=== PATIENT | female | born 1975 | race American Indian/Alaskan Native ===

== ENCOUNTER 2018-09-25 19:25 | Inpatient (IN) | payer BC, MEDICAID ==
[2018-09-25] MEDS ORDERED: NACL 0.9% 1000 ML 1,000 ML IV ONE ×2 (20:14→20:55)
--- NOTE | 2018-09-25 20:50 | Emergency Department Report ---
HPI - General Chief Complaint: Altered Mental Status Time Seen by Provider: 09/25/18 20:28 - HPI HPI: 42-year-old female presents to the emergency department with some abdominal pain and nausea without vomiting that started acutely this ev ening. The patient was able to room and was sitting down when she started complaining of feeling faint or dizzy. The patient has a previous history of strokes in the family was concerned and called for EMS. She was found to have a blood pressure of 70/30. An IV was started and IV fluid resuscitation was given with some improvement. The abdominal pain is mostly right-sided and worse in the upper quadrants. She did not take anything for her symptoms prior to arrival. She has a past medical history of the aforementioned stroke with mild residual speech deficits, hypertension, complex migraines, peptic ulcer disease. She denies having a primary care physician. She denies any tobacco, illicit drug use or alcohol abuse. ED Past Medical Hx - Past Medical History Hx Hypertension: Yes Hx CVA: Yes Hx Congestive Heart Failure: No Hx Diabetes: No Hx Deep Vein Thrombosis: No Hx Renal Disease: No Hx Sickle Cell Disease: No Hx Headaches / Migraines: Yes (complex migraines) Hx Seizures: Yes Hx Asthma: No Hx COPD: No Hx HIV: No Additional medical history: hemorrhoids, peptic ulcer disease - Surgical History Additional Surgical History: hemorroid surgery, myomectomy - Social History Smoking Status: Never Smoker - Medications Home Medications: Home Medications Medication Instructions Recorded Confirmed Last Taken Type Aspirin [Aspirin BABY CHEW TAB] 81 mg PO QDAY #30 tab.chew 04/29/15 01/25/16 01/25/16 Rx Butalb/Acetamin/Caff 50-325-40 1 tab PO Q4H PRN #20 tablet 04/29/15 01/25/16 01/25/16 Rx [Fioricet] Simvastatin [Zocor TAB] 20 mg PO QHS #30 tablet 04/29/15 01/25/16 01/25/16 Rx Topiramate [Topamax] 50 mg PO QHS #30 tablet 04/29/15 01/25/16 01/25/16 Rx amLODIPine [Norvasc] 5 mg PO DAILY #30 tab 04/29/15 01/25/16 01/25/16 Rx Lisinopril 10 cap PO DAILY 11/08/15 01/25/1601/24/16 History ED Review of Systems ROS: Stated complaint: ABDOMINAL PAIN Other details as noted in HPI Comment: All other systems reviewed and negative Constitutional: weakness. denies: chills Eyes: denies: eye pain, vision change ENT: denies: ear pain, throat pain Respiratory: denies: cough, shortness of breath Cardiovascular: denies: chest pain, palpitations Gastrointestinal: abdominal pain, nausea. denies: vomiting Genitourinary: denies: dysuria, discharge Musculoskeletal: denies: back pain, arthralgia Skin: denies: rash, lesions Neurological: denies: numbness, paresthesias Physical Exam - Physical Exam Vital Signs: Vital Signs 09/25/18 09/25/18 19:51 20:00 Temperature 97.4 F L Pulse Rate 76 82 Respiratory 13 17 Rate Blood Pressure 76/31 73/33 O2 Sat by Pulse 98 Oximetry Physical Exam: GENERAL: The patient is well-developed well-nourished. HEENT: Normocephalic. Atraumatic. Patient has moist mucous membranes. EYES: Extraocular motions are intact. Pupils are equal and reactive to light bilaterally. Pale Conjunctiva. NECK: Supple. Trachea is midline. CHEST/LUNGS: Clear to auscultation. There is no respiratory distress noted. HEART/CARDIOVASCULAR: Regular. There is no tachycardia. There is no obvious murmur. ABDOMEN: Abdomen is soft,. There is right-sided abdominal tenderness to palpation. No guarding. Patient has normal bowel sounds. There is no abdominal distention. SKIN: Skin is warm and dry. NEURO: The patient is awake, alert, and oriented. The patient is cooperative. The patient has no focal neurologic deficits. The patient has normal speech. Cranial nerves II through XII grossly intact. MUSCULOSKELETAL: There is no tenderness or deformity. There is no limitation range of motion. There is no evidence of acute injury. ED Course Vital Signs 09/25/18 09/25/18 19:51 20:00 Temperature 97.4 F L Pulse Rate 76 82 Respiratory 13 17 Rate Blood Pressure 76/31 73/33 O2 Sat by Pulse 98 Oximetry - Consultations Consultation #1: I spoke with the FRAUD EXAMINER on-call, Dr. Negron, and discussed with him the CT findings of fibroids that say that the larger fibroid could be hemorrhagic versus necrotic. Dr. Negron says that there is nothing emergent to be done but he is happy to consult if requested by medicine. 09/25/18 23:59 ED Medical Decision Making - Lab Data Result diagrams: 09/25/18 20:33 09/25/18 20:33 - EKG Data -: EKG Interpreted by Me EKG shows normal: sinus rhythm, axis, intervals, QRS complexes, ST-T waves Rate: normal - EKG Data When compared to previous EKG there are: no significant change Interpretation: normal EKG, unchanged when compared t (04/27/15) - Radiology Data Radiology results: report reviewed EXAM: CT ABDOMEN PELVIS WO CON HISTORY: Abd pain, ALL OVER SINCE TODAY. NO HX OF SURGERIES, BUT HX OF GALLSTONES. PT WAS ALLERGIC TO CONTRAST. TECHNIQUE: Helical CT scan through the abdomen and pelvis without contrast. Images are reconstructed in the sagittal and coronal planes. PRIORS: None. FINDINGS: Solid organ and bowel evaluation is limited without intravenous contrast. Bowel evaluation is limited without oral contrast. Images through the lower thorax show a small pericardial effusion. There is a small to moderate amount of abdominal fluid is around the liver and the spleen in the bilateral upper quadrants and in the bilateral pericolic gutters. The uterus is markedly enlarged due to the presence large fundal masses most consistent with fibroids. The uterus measures 22.2 x 8.6 x 14.0 Cm and the fundus extends 5 cm superior to the umbilicus. The largest fibroid is exophytic, arising from the fundus and measures 10.2 x 9.5 x 9.4 cm. It has a heterogeneous attenuation, possibly fluid. The 2nd largest mass measures approximately 8.9 x 8.0 x 6.8 cm and has coarse calcifications. The ovaries are not well demonstrated. The liver, gallbladder, pancreas, spleen and adrenal glands appear normal. The kidneys appear grossly normal. The stomach appears grossly within normal limits. There are no abnormally dilated loops of bowel or acute inflammatory changes. A normal-appearing appendix is identified. The abdominal aorta has a normal diameter. The bones and subcutaneous soft tissues are unremarkable for age. IMPRESSION: 1. There are large uterine fibroids. The larger fibroid extending from the fundus of the uterus may be hemorrhagic or necrotic. If there has been rapid fibroid growth, this may indicate malignant transformation. 2. Small to moderate abdominal ascites 3. Small pericardial effusion Transcribed By: MLG Dictated By: LEANNA MCKEON MD Electronically Authenticated By: LEANNA MCKEON MD Signed Date/Time: 09/25/[address] of the head without contrast does not show any bleed, shift, mass, ischemia or any other acute process. - Medical Decision Making Patient presents to the emergency department feeling dizzy and faint and with abdominal pain that started this evening. Patient was found to have a hemoglobin of 5.6. She does have a history of anemia requiring transfusions including 2 weeks ago. 2 units of packed red blood cells were ordered for transfusion. The patient's labs have been mostly unremarkable. CT scan of the abdomen and pelvis was done that shows an enlarged uterus and multiple fibroids including one that had the appearance of being necrotic versus hemorrhagic. FRAUD EXAMINER was notified there is no emergent intervention necessary but they are happy to see the patient has a consult. Patient did have some hypotension when she first arrived but with IV fluid resuscitation and now the blood transfusion it has improved/stabilized. Patient will be admitted to the hospital for further evaluation and treatment was accepted for admission by the hospitalist, Dr. Vaughn. - Differential Diagnosis menorrhagia, iron deficiency anemia, dysrhythmia, orthostatic hypotension Critical Care Time: No Critical care attestation.: If time is entered above; I have spent that time in minutes in the direct care of this critically ill patient, excluding procedure time. ED Disposition Clinical Impression: Anemia requiring transfusions, Symptomatic anemia Hypotension Qualifiers: Hypotension type: unspecified hypotension type Qualified Code(s): I95.9 - Hypotension, unspecified Abdominal pain Qualifiers: Abdominal location: generalized Qualified Code(s): R10.84 - Generalized abdominal pain Disposition: OP ADMIT IP TO THIS HOSP Is pt being admited?: Yes Condition: Fair Time of Disposition: 00:43
[2018-09-25 20:51] LABS: Basophils % (Auto) 0.3 % (0.0-1.8); Eosinophils % (Auto) 0.1 % (0.0-4.3); Lymphocytes # (Auto) 1.4 K/mm3 (1.2-5.4); Mean Corpuscular HGB Conc 29 % (30-34); Monocytes # (Auto) 0.6 K/mm3 (0.0-0.8); Monocytes % (Auto) 4.2 % (0.0-7.3); Platelet Count 412 K/mm3 (140-440); Red Blood Count 2.86 M/mm3 (3.65-5.03); Red Cell Distribution Width 19.4 % (13.2-15.2)
[2018-09-25 20:59] LABS: Hemoglobin 5.6 gm/dl (10.1-14.3)
[2018-09-25 21:00] LABS: Hematocrit 19.7 % (30.3-42.9); Mean Corpuscular Volume 69 fl (79-97)
[2018-09-25 21:01] LABS: Alanine Aminotransferase 8 units/L (7-56); Albumin 3.4 g/dL (3.9-5); BUN/Creatinine Ratio 12; Blood Urea Nitrogen 11 mg/dL (7-17); Calcium 7.8 mg/dL (8.4-10.2); Hemolysis Index 7
[2018-09-25] MEDS ORDERED: NACL 0.9% 500 ML 500 ML IV ONE (21:03)
[2018-09-25] MEDS ORDERED: ZOFRAN IV ONE (21:04)
[2018-09-25] MEDS ORDERED: ZOFRAN ONE (21:05)
[2018-09-25 21:35] LABS: INR 1.18 (0.87-1.13)
[2018-09-25 21:36] LABS: Partial Thromboplastin Time 24.7 Sec. (24.2-36.6)
--- NOTE | 2018-09-25 22:28 | XRay Report ---
FINAL REPORT EXAM: XR ABDOMEN 2V HISTORY: Abd pain TECHNIQUE: Supine and upright views of the abdomen. PRIORS: None. FINDINGS: The bowel gas pattern appears normal. There is no evidence of ileus or obstruction. There are no susp icious calcifications. The bones and soft tissues are unremarkable. IMPRESSION: No evidence of acute abdominal disease.
--- NOTE | 2018-09-25 22:55 | Cat Scan Report ---
FINAL REPORT EXAM: CT HEAD/BRAIN WO CON HISTORY: Dizziness TECHNIQUE: CT was performed from the foramen magnum through the vertex in the axial plane without th e use of intravenous contrast. PRIORS: None. FINDINGS: The nguyen/white matter attenuation pattern is normal. There is no mass lesion or mass effect. There ar e no abnormal extra-axial fluid collections. There is no evidence of acute intracranial hemorrhage or infarct. The ventricles are of normal size and configuration. The skull and orbits are unremarkable . The visualized paranasal sinuses are clear. IMPRESSION: Normal CT of the head.
--- NOTE | 2018-09-25 23:12 | Cat Scan Report ---
FINAL REPORT EXAM: CT ABDOMEN PELVIS WO CON HISTORY: Abd pain, ALL OVER SINCE TODAY. NO HX OF SURGERIES, BUT HX OF GALLSTONES. PT WAS ALLERGIC T O CONTRAST. TECHNIQUE: Helical CT scan through the abdomen and pelvis without contrast. Images are reconstructed in the sagittal and coronal planes. PRIORS: None. FINDINGS: Solid organ and bowel evaluation is limited without intravenous contrast. Bowel evaluation is limited without oral contrast. Images through the lower thorax show a small pericardial effusion. There is a small to moderate amount of abdominal fluid is around the liver and the spleen in the bila teral upper quadrants and in the bilateral pericolic gutters. The uterus is markedly enlarged due to the presence large fundal masses most consistent with fibroids . The uterus measures 22.2 x 8.6 x 14.0 Cm and the fundus extends 5 cm superior to the umbilicus. Th e largest fibroid is exophytic, arising from the fundus and measures 10.2 x 9.5 x 9.4 cm. It has a h eterogeneous attenuation, possibly fluid. The 2nd largest mass measures approximately 8.9 x 8.0 x 6.8 cm and has coarse calcifications. The ovaries are not well demonstrated. The liver, gallbladder, pancreas, spleen and adrenal glands appear normal. The kidneys appear grossly normal. The stomach appears grossly within normal limits. There are no abnormally dilated loops of bowel or acute inflammatory changes. A normal-appearing appe ndix is identified. The abdominal aorta has a normal diameter. The bones and subcutaneous soft tissues are unremarkable for age. IMPRESSION: 1. There are large uterine fibroids. The larger fibroid extending from the fundus of the uterus may b e hemorrhagic or necrotic. If there has been rapid fibroid growth, this may indicate malignant transf ormation. 2. Small to moderate abdominal ascites 3. Small pericardial effusion
[2018-09-25] MEDS ORDERED: SUBLIMAZE IV ONE (23:20)
[2018-09-26] MEDS ORDERED: SODIUM CHLORIDE FLUSH SYRINGE 10 ML IV PRN (00:37)
[2018-09-26] MEDS ORDERED: ZOFRAN IV PRN (00:37)
[2018-09-26] MEDS ORDERED: TYLENOL PO PRN (00:37)
--- NOTE | 2018-09-26 00:45 | History and Physical Report ---
History of Present Illness Date of examination: 09/26/18 Date of admission: 09/25/18 23:41 History of present illness: 43-year-old woman with a history of hypertension, migraine [facility] with complaints of abdominal pain. Pain is diffuse, sharp, intensity 8/10, no radiation, better with pain medication. Admits to nausea and vomiting, dizziness. Admits to heavy menstrual flow, typically 4 days Review of systems Constitutional: no weight loss, chills, fever Ears, eyes, nose, mouth and throat: no nasal congestion, no nasal discharge, no sinus pressure, no vision change, no red eye. Neck: No neck pain or rigidity. Cardiovascular: no palpitations, chest pain Respiratory: no cough, shortness of breath Gastrointestinal: no hematochezia Genitourinary : no frequency , no hematuria Musculoskeletal: no joint swelling or muscle ache Integumentary: no rash, no pruritis Neurological: no parathesias, no focal weakness Endocrine: no cold or heat intolerance, no polyuria or polydipsia Hematologic/Lymphatic: no easy bruising, no easy bleeding, no gland swelling Allergic/Immunologic: no urticaria, no angioedema. PAST MEDICAL HISTORY:hypertension, migraine PAST SURGICAL HISTORY: Myomectomy SOCIAL HISTORY: Denies alcohol, drugs, tobacco FAMILY HISTORY: Hypertension Medications and Allergies Allergies Allergy/AdvReac Type Severity Reaction Status Date / Time iv dye Allergy Hives Uncoded 11/25/14 13:16 Home Medications Medication Instructions Recorded Confirmed Last Taken Type RX: Butalb/Acetamin/Caff 50-325-40 1 tab PO Q4H PRN #20 tablet 04/29/15 01/25/16 01/25/16 Rx [Fioricet] RX: Topiramate [Topamax] 50 mg PO QHS #30 tablet 04/29/15 01/25/16 01/25/16 Rx Lisinopril 10 cap PO DAILY #30 09/27/18 Unknown Rx RX: Aspirin [Aspirin BABY CHEW TAB] 81 mg PO QDAY #30 tab.chew 09/27/18 Unknown Rx RX: Simvastatin (Nf) [Zocor TAB] 20 mg PO QHS #30 tablet 09/27/18 Unknown Rx RX: amLODIPine [Norvasc] 5 mg PO DAILY #30 tab 09/27/18 Unknown Rx oxyCODONE /ACETAMINOPHEN [Percocet 1 tab PO Q4HR #12 tab 09/27/18 Unknown Rx 5/325] Exam - Physical Exam Narrative exam: General Apperance: The patient lying in bed, breathing comfortable HEENT: Normocephalic, atraumatic. Pupils equally round and reactive to light, EOMI, no sclericterus or JVD or thyromegaly or nodule. , no carotid bruit, mucous membranes moist, no exudate or erythema Heart: S1-S2, regular is rhythm Lungs: Clear to auscultation bilaterally, breathing comfortable Abdomen: Positive bowel sounds, soft, tender in the mid abdomen, nondistended, no organomegaly Extremities: No edema cyanosis clubbing Skin: no rash, nodule, warm and dry Neuro: cranial nerves 2-12 intact, speech is fluent, motor/sensory intact - Constitutional Vitals: Temp Pulse Resp BP Pulse Ox 98.3 F 94 H 20 118/60 100 09/25/18 23:35 09/25/18 23:50 09/25/18 23:50 09/25/18 23:50 09/25/18 23:50 Results - Labs CBC & Chem 7: 09/27/18 04:41 09/27/18 04:41 Labs: Abnormal lab results 09/25/18 09/25/18 09/25/18 Range/Units 20:24 20:33 20:33 WBC (4.5-11.0) K/mm3 RBC (3.65-5.03) M/mm3 Hgb (10.1-14.3) gm/dl Hct (30.3-42.9) % MCV (79-97) fl MCH (28-32) pg MCHC (30-34) % RDW (13.2-15.2) % Lymph % (Auto) (13.4-35.0) % Seg Neutrophils % (40.0-70.0) % Seg Neutrophils # (1.8-7.7) K/mm3 PT (12.2-14.9) Sec. INR (0.87-1.13) Carbon Dioxide 20 L (22-30) mmol/L Glucose 158 H (65-100) mg/dL POC Glucose 148 H (70-105) Lactic Acid 3.30 H* (0.7-2.0) mmol/L Calcium 7.8 L (8.4-10.2) mg/dL Total Protein 5.8 L (6.3-8.2) g/dL Albumin 3.4 L (3.9-5) g/dL Crossmatch 09/25/18 09/25/18 09/25/18 Range/Units 20:33 21:14 21:21 WBC 15.1 H (4.5-11.0) K/mm3 RBC 2.86 L (3.65-5.03) M/mm3 Hgb 5.6 L* (10.1-14.3) gm/dl Hct 19.7 L* (30.3-42.9) % MCV 69 L (79-97) fl MCH 20 L (28-32) pg MCHC 29 L (30-34) % RDW 19.4 H (13.2-15.2) % Lymph % (Auto) 9.0 L (13.4-35.0) % Seg Neutrophils % 86.4 H (40.0-70.0) % Seg Neutrophils # 13.1 H (1.8-7.7) K/mm3 PT 15.4 H (12.2-14.9) Sec. INR 1.18 H (0.87-1.13) Carbon Dioxide (22-30) mmol/L Glucose (65-100) mg/dL POC Glucose (70-105) Lactic Acid (0.7-2.0) mmol/L Calcium (8.4-10.2) mg/dL Total Protein (6.3-8.2) g/dL Albumin (3.9-5) g/dL Crossmatch See Detail 09/25/18 Range/Units 21:21 WBC (4.5-11.0) K/mm3 RBC (3.65-5.03) M/mm3 Hgb (10.1-14.3) gm/dl Hct (30.3-42.9) % MCV (79-97) fl MCH (28-32) pg MCHC (30-34) % RDW (13.2-15.2) % Lymph % (Auto) (13.4-35.0) % Seg Neutrophils % (40.0-70.0) % Seg Neutrophils # (1.8-7.7) K/mm3 PT (12.2-14.9) Sec. INR (0.87-1.13) Carbon Dioxide (22-30) mmol/L Glucose (65-100) mg/dL POC Glucose (70-105) Lactic Acid 3.10 H* (0.7-2.0) mmol/L Calcium (8.4-10.2) mg/dL Total Protein (6.3-8.2) g/dL Albumin (3.9-5) g/dL Crossmatch - Imaging and Cardiology Abdominal x-ray: report reviewed CT scan - abdomen: report reviewed CT scan - pelvis: report reviewed Assessment and Plan Assessment Abdominal pain secondary to fibroids, ? Necrotic versus hemorrhagic SIRS Symptomatic anemia Plan Admit to medicine Transfuse packed red blood cells Consult [employer] CLASSIFIER TENDER IV morphine, to be typical prophylaxis Obtain blood culture, urinalysis, start IV Rocephin
[2018-09-26] MEDS ORDERED: NACL 0.9% 1000 ML 1,000 ML IV SCH (01:00)
[2018-09-26] MEDS: MORPHINE IV PRN ×4 (01:30→21:51)
[2018-09-26] MEDS ORDERED: ZOFRAN ONE (01:37)
[2018-09-26] MEDS ORDERED: MORPHINE ONE ×2 (01:37→01:41)
[2018-09-26] MEDS: ROCEPHIN/NS 1 GM/50 ML 1 GM/50 ML BAG IV SCH ×2 (01:56→11:34)
[2018-09-26 05:58] LABS: Basophils % (Auto) 0.2 % (0.0-1.8); Hematocrit 23.2 % (30.3-42.9); Hemoglobin 7.1 gm/dl (10.1-14.3); Lymphocytes # (Auto) 0.7 K/mm3 (1.2-5.4); Lymphocytes % (Auto) 7.5 % (13.4-35.0); Mean Corpuscular HGB Conc 31 % (30-34); Mean Corpuscular Volume 73 fl (79-97); Monocytes # (Auto) 0.5 K/mm3 (0.0-0.8); Monocytes % (Auto) 4.8 % (0.0-7.3); Platelet Count 329 K/mm3 (140-440); Red Blood Count 3.16 M/mm3 (3.65-5.03); Red Cell Distribution Width 24.9 % (13.2-15.2)
[2018-09-26 06:18] LABS: BUN/Creatinine Ratio 15; Blood Urea Nitrogen 9 mg/dL (7-17); Calcium 7.9 mg/dL (8.4-10.2); Hemolysis Index 9
--- NOTE | 2018-09-26 06:53 | XRay Report ---
FINAL REPORT PROCEDURE: XR CHEST ROUTINE 2V TECHNIQUE: PA and lateral chest radiographs were obtained. CPT 88679 HISTORY: eval for pna COMPARISON: No prior studies are available for comparison. FINDINGS: Heart: Normal. Mediastinum/Vessels: Normal. Lungs/Pleural space: There is suboptimal inspiration. There is atelectasis at the lung bases. There a re no acute infiltrates. There is no pleural effusion or pneumothorax.. Bony thorax: No acute osseous abnormality. Other: IMPRESSION: The heart size is normal.. There is suboptimal inspiration. There is atelectasis at the lung bases. There are no acute infiltrat es. There is no pleural effusion or pneumothorax..
--- NOTE | 2018-09-26 08:33 | Event Note ---
Date: 09/26/18 This is a follow-up from an admission earlier this morning. Patient seen and examined. We will continue the plan as outlined in H&P. Await YARD SWITCH OPERATOR evaluation. We'll transfuse 1 more unit of PRBCs. Total visit time equals 35 minutes; greater than 50 % was spent with correlation of care and counseling.
[2018-09-26] MEDS ORDERED: NACL 0.9% 500 ML 500 ML IV ONE (08:34)
[2018-09-26 10:03] LABS: Bilirubin,Urine NEG (Negative); Blood,Urine NEG (Negative); Color,Urine Yellow (Yellow); Mucus,Urine FEW /HPF; Protein,Urine <15 mg/dL mg/dL (Negative); Urobilinogen,Urine < 2.0 mg/dL (<2.0)
[2018-09-26] MEDS: SODIUM CHLORIDE FLUSH SYRINGE 10 ML IV SCH ×2 (11:34→21:52)
[2018-09-26] MEDS ORDERED: NACL 0.9% 500 ML 500 ML ONE (11:42)
--- NOTE | 2018-09-26 12:19 | Consultation ---
History of Present Illness Consult date: 09/26/18 Requesting physician: MICHAEL COTTON Reason for consult: menorrhagia, other (uterine fibroids) History of present illness: hx as pe ER attending: "42-year-old female presents to the emergency department with some abdominal pain and nausea without vomiting that started acutely this evening. The patient was able to room and was sitting down when she started complaining of feeling faint or dizzy. The patient has a previous history of strokes in the family was concerned and called for EMS. She was found to have a blood pressure of 70/30. An IV was started and IV fluid resuscitation was given with some improvement. The abdominal pain is mostly right-sided and worse in the upper quadrants. She did not take anything for her symptoms prior to arrival. She has a past medical history of the aforementioned stroke with mild residual speech deficits, hypertension, complex migraines, peptic ulcer disease. She denies having a primary care physician. She denies any tobacco, illicit drug use or alcohol abuse." Pt did have CT done that showed large fibroids of which some seem to be degenerating. CHAIN OFFBEARER was consulted for this. Pt is not currently bleeding but states that her periods have been heavy for some time. She did have a myomectomy years ago but due to other jax issues has not been on hormonal threapy for the heavy bleeding. Periods las7 to 10 days with all days being heavy. She currently taking blood thinner daily due to h/o CVA. She has not seen a auto glass technician or had a pap [id number] but states she does have a auto glass technician in [place] she last saw. Pain currently is described as feeling sore across abdomen. Past History Past Medical History: hypertension, blood transfusion, migraines, other (stroke) Past Surgical History: myomectomy CHAIN OFFBEARER History: fibroids, other Family/Genetic History: hypertension, stroke - Obstetrical History : 7 Medications and Allergies Allergies Allergy/AdvReac Type Severity Reaction Status Date / Time iv dye Allergy Hives Uncoded 11/25/14 13:16 Home Medications Medication Instructions Recorded Confirmed Last Taken Type Aspirin [Aspirin BABY CHEW TAB] 81 mg PO QDAY #30 tab.chew 04/29/15 01/25/16 01/25/16 Rx Butalb/Acetamin/Caff 50-325-40 1 tab PO Q4H PRN #20 tablet 08/01/25/16 01/25/16 Rx [Fioricet] Simvastatin [Zocor TAB] 20 mg PO QHS #30 tablet 04/29/15 01/25/16 01/25/16 Rx Topiramate [Topamax] 50 mg PO QHS #30 tablet 04/29/15 01/25/16 01/25/16 Rx amLODIPine [Norvasc] 5 mg PO DAILY #30 tab 04/29/15 01/25/16 01/25/16 Rx Lisinopril 10 cap PO DAILY 11/08/15 01/25/16 01/25/16 History Active Meds: Active Medications Acetaminophen (Tylenol) 650 mg PO Q4H PRN PRN Reason: Pain MILD(1-3)/Fever >100.5/GODOY Ceftriaxone Sodium (Rocephin/Ns 1 Gm/50 Ml) 1 gm in 50 mls @ 100 mls/hr IV Q24HR DAVID; Protocol Last Admin: 09/26/18 11:34 Dose: 100 mls/hr Documented by: Sodium Chloride (Nacl 0.9% 1000 Ml) 1,000 mls @ 100 mls/hr IV DIRECT DAVID Last Admin: 09/26/18 04:43 Dose: 100 mls/hr Documented by: Morphine Sulfate (Morphine) 2 mg IV Q4H PRN PRN Reason: Pain, Moderate (4-6) Last Admin: 09/26/18 04:43 Dose: 2 mg Documented by: Ondansetron HCl (Zofran) 4 mg IV Q8H PRN PRN Reason: Nausea And Vomiting Last Admin: 09/26/18 01:30 Dose: 4 mg Documented by: Sodium Chloride (Sodium Chloride Flush Syringe 10 Ml) 10 ml IV BID ON LICENSE OF [facility] Last Admin: 09/26/18 11:34 Dose: 10 ml Documented by: Sodium Chloride (Sodium Chloride Flush Syringe 10 Ml) 10 ml IV PRN PRN PRN Reason: LINE FLUSH - Vital Signs Vital signs: Vital Signs Pulse Resp BP 76 13 76/31 09/25/18 19:51 09/25/18 19:51 09/25/18 19:51 Temp Pulse Resp BP Pulse Ox 99.1 F 79 18 109/64 100 09/26/18 05:34 09/26/18 05:34 09/26/18 05:34 09/26/18 05:34 09/26/18 05:34 - Physical Exam Breasts: Positive: normal Lungs: Positive: Normal air movement Abdomen: Positive: normal appearance, soft, tenderness (mild diffuse over fundus of uterus), guarding (voluntary agin over uterine fundus). Negative: distention Genitourinary (Female): Positive: other (deferred) Uterus: Positive: enlarged (papated just above the umbilicus) Results Result Diagrams: 09/26/18 05:16 09/26/18 05:16 Abnormal lab results 09/25/18 09/25/18 09/25/18 Range/Units 20:24 20:33 20:33 WBC (4.5-11.0) K/mm3 RBC (3.65-5.03) M/mm3 Hgb (10.1-14.3) gm/dl Hct (30.3-42.9) % MCV (79-97) fl MCH (28-32) pg MCHC (30-34) % RDW (13.2-15.2) % Lymph % (Auto) (13.4-35.0) % Lymph # (1.2-5.4) K/mm3 Seg Neutrophils % (40.0-70.0) % Seg Neutrophils # (1.8-7.7) K/mm3 PT (12.2-14.9) Sec. INR (0.87-1.13) Carbon Dioxide 20 L (22-30) mmol/L Creatinine (0.7-1.2) mg/dL Glucose 158 H (65-100) mg/dL POC Glucose 148 H (70-105) Lactic Acid 3.30 H* (0.7-2.0) mmol/L Calcium 7.8 L (8.4-10.2) mg/dL Total Protein 5.8 L (6.3-8.2) g/dL Albumin 3.4 L (3.9-5) g/dL Crossmatch 09/25/18 09/25/18 09/25/18 Range/Units 20:33 21:14 21:21 WBC 15.1 H (4.5-11.0) K/mm3 RBC 2.86 L (3.65-5.03) M/mm3 Hgb 5.6 L* (10.1-14.3) gm/dl Hct 19.7 L* (30.3-42.9) % MCV 69 L (79-97) fl MCH 20 L (28-32) pg MCHC 29 L (30-34) % RDW 19.4 H (13.2-15.2) % Lymph % (Auto) 9.0 L (13.4-35.0) % Lymph # (1.2-5.4) K/mm3 Seg Neutrophils % 86.4 H (40.0-70.0) % Seg Neutrophils # 13.1 H (1.8-7.7) K/mm3 PT 15.4 H (12.2-14.9) Sec. INR 1.18 H (0.87-1.13) Carbon Dioxide (22-30) mmol/L Creatinine (0.7-1.2) mg/dL Glucose (65-100) mg/dL POC Glucose (70-105) Lactic Acid (0.7-2.0) mmol/L Calcium (8.4-10.2) mg/dL Total Protein (6.3-8.2) g/dL Albumin (3.9-5) g/dL Crossmatch See Detail 09/25/18 09/26/18 09/26/18 Range/Units 21:21 05:16 05:16 WBC (4.5-11.0) K/mm3 RBC 3.16 L (3.65-5.03) M/mm3 Hgb 7.1 L (10.1-14.3) gm/dl Hct 23.2 L (30.3-42.9) % MCV 73 L (79-97) fl MCH 23 L (28-32) pg MCHC (30-34) % RDW 24.9 H (13.2-15.2) % Lymph % (Auto) 7.5 L (13.4-35.0) % Lymph # 0.7 L (1.2-5.4) K/mm3 Seg Neutrophils % 87.5 H (40.0-70.0) % Seg Neutrophils # 8.6 H (1.8-7.7) K/mm3 PT (12.2-14.9) Sec. INR (0.87-1.13) Carbon Dioxide (22-30) mmol/L Creatinine 0.6 L (0.7-1.2) mg/dL Glucose (65-100) mg/dL POC Glucose (70-105) Lactic Acid 3.10 H* (0.7-2.0) mmol/L Calcium 7.9 L (8.4-10.2) mg/dL Total Protein (6.3-8.2) g/dL Albumin (3.9-5) g/dL Crossmatch All other labs normal. Assessment and Plan - Patient Problems (1) Fibroid uterus Current Visit: Yes Status: Acute Plan to address problem: -likely degenerating fibroid causing pain. Would recommend pain management with pt f/u as out pt with auto glass technician for complete work up ie pelvic sonogram, embx if needed, pap. -ultimately will need direct treatment of the fibroids for resolution of sx. All medical intervention that is normal given is contraindicated given h/o stroke. I d/w UFE, myomectomy, and hysterectomy. She of course is undecided at this time but will f/u with auto glass technician concerning this. -clear from auto glass technician standing point. please re-consult as needed. (2) Menorrhagia Current Visit: Yes Status: Acute Plan to address problem: ultimately will need direct treatment of the fibroids for resolution of sx. All medical intervention that is normal given is contraindicated given h/o stroke. I d/w UFE, myomectomy, and hysterectomy. She of course is undecided at this time but will f/u with auto glass technician concerning this. -clear from auto glass technician standing point to be d/c home with work up completed as an out pt. please re-consult as needed. (3) Symptomatic anemia Current Visit: Yes Status: Acute
[2018-09-27 04:59] LABS: Hematocrit 25.8 % (30.3-42.9); Hemoglobin 7.9 gm/dl (10.1-14.3); Mean Corpuscular HGB Conc 31 % (30-34); Mean Corpuscular Volume 76 fl (79-97); Platelet Count 322 K/mm3 (140-440); Red Blood Count 3.42 M/mm3 (3.65-5.03)
[2018-09-27 05:00] LABS: Red Cell Distribution Width 25.1 % (13.2-15.2)
[2018-09-27] MEDS: MORPHINE IV PRN (05:19)
[2018-09-27 05:20] LABS: BUN/Creatinine Ratio 9; Blood Urea Nitrogen 6 mg/dL (7-17); Calcium 8.1 mg/dL (8.4-10.2); Hemolysis Index 13
[2018-09-27 05:55] LABS: Basophils % (Manual) 0 % (0.0-1.8); Monocytes % (Manual) 0 % (0.0-7.3); Total Cells Counted 100
[2018-09-27 05:56] LABS: Anisocytosis 1+; Hypochromasia 1+; Platelet Estimate Consistent w Auto
[2018-09-27 07:21] VITALS: BP 140/89
--- NOTE | 2018-09-27 08:53 | Discharge Summary ---
Providers - Providers Date of Admission: 09/25/18 23:41 Date of discharge: 09/27/18 Attending physician: ISRAEL PEOPLES 09/26/18 00:37 Consult to Physician [CONS] Routine Comment: Consulting Provider: ELLEN ARAMBULA Physician Instructions: Reason For Exam: fibroid, ?necrotic Primary care physician: MANAGER LEGAL Hospitalization Reason for admission: anemia, menorrhagia Condition: Fair Hospital course: 42-year-old female presents to the emergency department with some abdominal pain and nausea without vomiting that started acutely the evening prior to admission. The patient also complained of of feeling faint and dizzy. The patient has a previous history of strokes in the family was concerned and called for EMS. She was found to have a blood pressure of 70/30. An IV was started and IV fluid resuscitation was given with some improvement. The abdominal pain was mostly right-sided and worse in the upper quadrants. She did not take anything for her symptoms prior to arrival. She has a past medical history of the aforementioned stroke with mild residual speech deficits, hypertension, complex migraines, peptic ulcer disease. She denies having a primary care physician. She denies any tobacco, illicit drug use or alcohol abuse. Pt did have CT done that showed large fibroids of which some seem to be degenerating. PACK ROOM OPERATOR was consulted for this. Pt is not currently bleeding but states that her periods have been heavy for some time. She did have a myomectomy years ago but due to other jax issues has not been on hormonal threapy for the heavy bleeding she was. PACK ROOM OPERATOR felt that likely degenerating fibroid is causing the patient's pain. Patient received appropriate pain management. Ultimately patient will need direct treatment of fibroids for resolution of symptoms. PACK ROOM OPERATOR discussed with the patient UFE, myomectomy, and hysterectomy. She of course is undecided at this time but will f/u with digital technician concerning this. Patient received a total of 3 units of PRBCs with stabilization of her H&H. Dedicated discharge time 32 minutes. Disposition: TO HOME OR SELFCARE Time spent for discharge: 32 - Discharge Diagnoses (1) Abdominal pain Status: Acute (2) Anemia requiring transfusions Status: Acute (3) Fibroid uterus Status: Acute (4) Hypotension Status: Acute (5) Menorrhagia Status: Acute (6) Symptomatic anemia Status: Acute Core Measure Documentation - Palliative Care Palliative Care/ Comfort Measures: Not Applicable - Core Measures Any of the following diagnoses?: none Exam - Constitutional Vitals: Temp Pulse Resp BP Pulse Ox 98.8 F 92 H 20 140/89 99 09/27/18 06:10 09/27/18 06:10 09/27/18 06:10 09/27/18 06:10 09/27/18 06:10 General appearance: Present: no acute distress, well-nourished - EENT Eyes: Present: PERRL ENT: hearing intact, clear oral mucosa - Neck Neck: Present: supple, normal ROM - Respiratory Respiratory effort: normal Respiratory: bilateral: CTA - Cardiovascular Heart Sounds: Present: S1 & S2. Absent: rub, click - Extremities Extremities: pulses symmetrical, No edema Peripheral Pulses: within normal limits - Abdominal General gastrointestinal: Present: soft, non-tender, non-distended, normal bowel sounds Female genitourinary: Present: normal - Integumentary Integumentary: Present: clear, warm, dry - Musculoskeletal Musculoskeletal: gait normal, strength equal bilaterally - Psychiatric Psychiatric: appropriate mood/affect, intact judgment & insight - Neurologic Neurologic: CNII-XII intact, moves all extremities Plan Activity: advance as tolerated Weight Bearing Status: Weight Bear as Tolerated Follow up with: PRIMARY CARE, [Primary Care Provider] - 3-5 Days KAREN KELLEY MD [Staff Physician] - 7 Days Prescriptions: amLODIPine [Norvasc] 5 mg PO DAILY #30 tab Aspirin [Aspirin BABY CHEW TAB] 81 mg PO QDAY #30 tab.chew Lisinopril 10 cap PO DAILY #30 oxyCODONE /ACETAMINOPHEN [Percocet 5/325] 1 tab PO Q4HR #12 tab Simvastatin [Zocor TAB] 20 mg PO QHS #30 tablet
== END 2018-09-27 12:00 | disposition home or self-care (01) | DRG 315 ==
LOC: ED 19:25 → 3A 23:41
PROVIDERS: ADMIT Internal Medicine; ATTEND Hospitalist
PROC: 30233N1 Transfusion of Nonautologous Red Blood Cells into Peripheral Vein, Percutaneous Approach (ICD-10-PCS; principal; 2018-09-25)
DX: I95.9 Hypotension, unspecified (principal); R65.10 Systemic inflammatory response syndrome (SIRS) of non-infectious origin without acute organ dysfunction; D64.9 Anemia, unspecified; D25.9 Leiomyoma of uterus, unspecified; I69.928 Other speech and language deficits following unspecified cerebrovascular disease; I10 Essential (primary) hypertension; G43.909 Migraine, unspecified, not intractable, without status migrainosus; Z87.11 Personal history of peptic ulcer disease; Z82.49 Family history of ischemic heart disease and other diseases of the circulatory system; Z91.041 Radiographic dye allergy status; Z79.82 Long term (current) use of aspirin; Z79.899 Other long term (current) drug therapy
CPT/HCPCS: 36415; 36430; 70450; 71046; 74019; 74176; 80048; 80053; 81001; 82140; 82962; 84484; 84703; 85007; 85025; 85610; 85730; 86850; 86900; 86901; 86920; 87040; 87116; 93005; 93010; 96374; G0378; J0696; J2270; J2405; J3010; J7030; J7040; P9016